=== PATIENT | male | born 1955 | race African-American/Black ===

== ENCOUNTER 2017-01-03 16:35 | Emergency (ER) | payer MEDICARE, MEDICAID ==
[~2017-01-03] VITALS: Ht 170.2 cm; Wt 70.0 kg
[~2017-01-03 16:35] MED LIST: AMIODARONE HCL 50MG/ML 3ML VIAL IV ONE; EPINEPHRINE 0.1MG/ML (1:10,000) 10ML SYR ONE; SODIUM BICARBONATE 7.5% 0.9 MEQ/ML 50ML SYR IV ONE
[2017-01-03 16:36] VITALS: BP 0/0
== END 2017-01-03 16:44 | disposition expired ==
LOC: ER 16:44
DX: R09.2 Respiratory arrest (principal); E11.9 Type 2 diabetes mellitus without complications
CPT/HCPCS: 31500; 31525; 36680; 92950; 99285; J0171; J0282; J3490